=== PATIENT | male | born 1945 | race Caucasian/White ===

== ENCOUNTER 2018-03-11 09:29 | Outpatient (REF) | payer MEDICARE, MEDICAID, SELFPAY ==
[2018-03-11 12:55] LABS: ALT 17 U/L (12-78); AST 19 U/L (15-37); Albumin 3.9 g/dL (3.4-5.0); Alkaline Phosphatase 112 U/L (46-116); BUN 41 mg/dL (7-18); Bilirubin, Total 0.7 mg/dL (0.2-1.0); CREATININE 1.63 mg/dL (0.70-1.30); Calcium 8.7 mg/dL (8.5-10.1); Chloride 105 mmol/L (98-107); Cholesterol 239 mg/dL (50-200); Estimated GFR 41.56 (mL/min/1.73m2); Glucose 102 mg/dL (70-100); HDL Cholesterol 42 mg/dL (40-60); LDL CHOLESTEROL 177 mg/dL (<100); Potassium 4.2 mmol/L (3.5-5.1); Sodium 139 mmol/L (136-145); Total Protein 7.3 g/dL (6.4-8.2); Triglyceride 114 mg/dL (30-150)
== END 2018-03-11 09:30 ==
LOC: NCHCN 09:29
PROVIDERS: Visit Provider Family Medicine
DX: I10 Essential (primary) hypertension (principal); Z13.6 Encounter for screening for cardiovascular disorders
CPT/HCPCS: 80053; 80061; 83721

== ENCOUNTER 2019-08-24 08:55 | Outpatient (REF) | payer MEDICARE, MEDICAID, SELFPAY ==
[2019-08-24 12:52] LABS: ALT 20 U/L (16-63); AST 18 U/L (15-37); Alkaline Phosphatase 102 U/L (46-116); Anion Gap 11.4 mmol/L (3-11); BUN 45 mg/dL (7-18); Bilirubin, Total 0.5 mg/dL (0.2-1.0); CO2 26.6 mmol/L (21.0-32.0); Calcium 8.8 mg/dL (8.5-10.1); Calculated LDL 187 mg/dL (<100); Chloride 104 mmol/L (98-107); Cholesterol 253 mg/dL (<200); Estimated GFR 39.38 (mL/min/1.73m2); Glucose 116 mg/dL (74-106); HDL Cholesterol 43 mg/dL (40-60); Potassium 4.5 mmol/L (3.5-5.1); Sodium 142 mmol/L (136-145); Total Protein 7.1 g/dL (6.4-8.2); Triglyceride 119 mg/dL (<150)
[2019-08-24 13:56] LABS: HCT 40.8 % (40.0-50.0); HGB 13.6 g/dL (13.5-17.5); Mean Corp. HGB Concentration 33.3 g/dL (32.0-36.0); Mean Corpuscular Hemoglobin 31.1 pg (27.0-33.0); Mean Corpuscular Volume 93.2 fL (80-95); Mean Platelet Volume 12.4 fL (8.0-11.0); Platelet Count 154 x1000/uL (130-400); RBC 4.38 m/cumm (4.50-6.00); RBC Distribution Width 13.3 % (11.8-14.1); White Blood Cell Count 10.83 k/cumm (4.4-10.8)
== END 2019-08-24 09:15 ==
LOC: NCHCN 08:55
PROVIDERS: Visit Provider Family Medicine
DX: I48.0 Paroxysmal atrial fibrillation (principal); E78.5 Hyperlipidemia, unspecified; I10 Essential (primary) hypertension; Z00.00 Encounter for general adult medical examination without abnormal findings
CPT/HCPCS: 80053; 80061; 85027

== ENCOUNTER 2020-04-29 15:42 | Outpatient (REF) | payer MEDICARE, MEDICAID, SELFPAY ==
[2020-05-02 02:08] LABS: COVID-19 RT-PCR Result NEGATIVE (Negative)
== END 2020-04-29 16:02 ==
LOC: NCHCN 15:42
PROVIDERS: Visit Provider Family Medicine
DX: Z20.828 Contact with and (suspected) exposure to other viral communicable diseases (principal)
CPT/HCPCS: U0003

== ENCOUNTER 2021-05-15 16:29 | Outpatient (REF) | payer MEDICARE, MEDICAID, SELFPAY ==
[2021-05-15 21:57] LABS: ALT 23 U/L (16-63); AST 25 U/L (15-37); Albumin 3.9 g/dL (3.4-5.0); Alkaline Phosphatase 111 U/L (46-116); BUN 43 mg/dL (7-18); Bilirubin, Total 0.6 mg/dL (0.2-1.0); CREATININE 1.8 mg/dL (0.70-1.30); Calcium 8.8 mg/dL (8.5-10.1); Calculated LDL 151 mg/dL (<100); Chloride 103 mmol/L (98-107); Cholesterol 221 mg/dL (<200); Estimated GFR 36.67 (mL/min/1.73m2); Glucose 85 mg/dL (74-106); HDL Cholesterol 49 mg/dL (40-60); Potassium 4.1 mmol/L (3.5-5.1); Sodium 141 mmol/L (136-145); Total Protein 7.1 g/dL (6.4-8.2); Triglyceride 105 mg/dL (<150)
[2021-05-15 22:08] LABS: Creatine Kinase 168 U/L (39-308)
== END 2021-05-15 16:30 | disposition home or self-care (01) ==
LOC: NCHCN 16:29
PROVIDERS: Visit Provider Family Medicine
DX: E78.5 Hyperlipidemia, unspecified (principal)
CPT/HCPCS: 80053; 80061; 82550

== ENCOUNTER 2022-11-26 15:32 | Outpatient (REF) | payer MEDICARE, MEDICAID, SELFPAY ==
[2022-11-26 20:46] LABS: HCT 38.4 % (40.0-50.0); HGB 12.8 g/dL (13.5-17.5); MCH 30.7 pg (27.0-33.0); MCHC 33.3 % (32.0-36.0); MCV 92 fL (80-95); MPV 12.1 fL (8.0-11.0); Platelet Count 134 10^3/uL (130-400); RBC 4.17 10^6/uL (4.36-5.78); RDW-SD 43.8 fL; WBC 8.95 10^3/uL (4.4-10.8)
[2022-11-26 21:10] LABS: ALT 20 U/L (16-63); AST 24 U/L (15-37); Alkaline Phosphatase 123 U/L (46-116); Anion Gap 12.1 mmol/L (3-11); BUN 48 mg/dL (7-18); Bilirubin, Total 1.1 mg/dL (0.2-1.0); CO2 25.9 mmol/L (21.0-32.0); CREATININE 1.8 mg/dL (0.70-1.30); Calcium 9.3 mg/dL (8.5-10.1); Chloride 103 mmol/L (98-107); Estimated GFR 37.82 (mL/min/1.73m2); Glucose 118 mg/dL (74-106); Potassium 3.9 mmol/L (3.5-5.1); Sodium 141 mmol/L (136-145); Total Protein 7.4 g/dL (6.4-8.2)
[2022-11-30 09:38] LABS: PSA, Screening 126.1 ng/mL (<=6.5)
== END 2022-11-26 15:33 | disposition home or self-care (01) ==
LOC: NCHCN 15:32
PROVIDERS: Visit Provider Family Medicine
DX: I10 Essential (primary) hypertension (principal); Z12.5 Encounter for screening for malignant neoplasm of prostate
CPT/HCPCS: 80053; 84153; 85027

== ENCOUNTER 2022-11-30 10:34 | Emergency (ER) | payer MEDICARE, MEDICAID, SELFPAY ==
[2022-11-30 10:46] VITALS: BP 160/77; PULSE 61; RESP 18; TEMP 36.7; O2SAT 99
--- NOTE | 2022-11-30 10:52 | NUR.NOTE ---
Nursing Note: [facility] called follow up appt December 02 @ 9:00 AM
--- NOTE | 2022-11-30 10:55 | W.ED.GENAD ---
Discharge Plan Disposition Patient Disposition: Home Discharge Details Clinical Impression: Acute urinary retention, Hematuria, Complication, blocked Jordan catheter Primary Care Provider: Freda Dumont ED Provider: Yossi Burgos Meds and New Rx's Prescriptions: Continued chlorthalidone 25 MG tablet 25 mg PO DAILY amlodipine 5 MG tablet 5 mg PO DAILY allopurinol 100 mg tablet 100 mg PO DAILY metoprolol tartrate 25 mg tablet 25 mg PO BID ascorbic acid (vitamin C) 500 mg capsule PO BID rosuvastatin [Crestor] 10 mg tablet 10 mg PO DAILY lisinopril 20 mg tablet 40 mg PO DAILY pravastatin 20 MG tablet 20 mg PO .QHS clindamycin HCl 300 MG capsule 300 mg PO .QID diphenhydramine HCl [Benadryl] 25 MG capsule 25 mg PO PRN ranitidine HCl [Zantac Maximum Strength] 150 MG tablet 150 mg PO BID Qty: 14 0RF prednisone 20 MG tablet 60 mg PO DAILY Qty: 15 0RF Discharge Instructions Instructions: Hematuria (ED), Urinary Retention in Men (ED) Discharge Data Discharge Physician: Yossi Burgos Medical Decision Making Patient had urinary tension last week had a Jordan placed came today for the Jordan was clogged with clots. 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 Here in the emergency department he had the Jordan irrigated with removal of clots now is flowing adequately in the urine has cleared. He will be discharged home with a Jordan and a leg bag advised him if he is out on the farm to clamp the Jordan take the back off and put back on without getting infected. Urinalysis was sent which shows no infection no white blood cells shows hematuria Differential Diagnosis Differential Diagnosis: 1. Urinary retention 2. Hematuria 3. Hemorrhagic cystitis Lab Data Lab results reviewed: Yes I reviewed the patient's lab results. Lab results narrative: No white blood cells just red blood cells Labs: RUN DATE: 11/30/22 [facility] PAGE 1 RUN TIME: [id number] RUN USER: [place] [address] Mamta Greco MD PATIENT REPORT PATIENT: Alfa Cruz LOC: ER U #: [id number] /SX: 1945 M ROOM: RE11/30/[address]: Yossi Burgos M.D. STATUS: REG ER BED: DIS: SPEC #: [id number] MATTY: 11/30/22 STATUS: COMP REQ #: [id number] RECD: 11/30/[address]: Yossi Burgos M.D. ENTERED: 11/30/[address]: FAX #: ORDERED: Urinalysis, UA Micro Test Result Flag Reference Verified Color Yellow Yellow 11/30/22 Clarity Cloudy Clear 11/30/22 Specific [place] 1.025 1.005-1.025 11/30/22 pH 7.5 5-8 11/30/22 Leukocyte Esterase Negative Negative 11/30/22 Nitrite Negative Negative 11/30/22 Protein 30 H Negative mg/dL 11/30/22 Glucose Negative Negative mg/dL 11/30/22 Ketones Negative Negative mg/dL 11/30/22 Urobilinogen 0.2 Up to 0.2 mg/dL 11/30/22 Bilirubin Negative Negative 11/30/22 Blood Large H Negative 11/30/22 WBC 0-2 0-5 HPF 11/30/22 RBC >50 H 0-2 HPF 11/30/22 Epithelial Cells Rare Negative HPF 11/30/22 Bacteria Negative Negative HPF 11/30/22 Crystals Negative Negative HPF 11/30/22 Mucus Trace Negative 11/30/22 Casts 0-2 Hyaline Negative LPF 11/30/22 C & S Indicated? No 11/30/22 HPI General Date/Time Provider Initiated Documentation: 11/30/22 10:55. 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 Related Data Home Medications Medication Instructions Recorded Confirmed amlodipine 5 mg tablet 5 mg PO DAILY 07/19/13 05/27/15 chlorthalidone 25 mg tablet 25 mg PO DAILY 07/19/13 05/27/15 clindamycin HCl 300 mg capsule 300 mg PO .QID 05/27/15 05/27/15 diphenhydramine HCl 25 mg capsule 25 mg PO PRN 05/27/15 05/27/15 (Benadryl) pravastatin 20 mg tablet 20 mg PO .QHS 05/27/15 05/27/15 prednisone 20 mg tablet 60 mg PO DAILY ##15 05/27/15 ranitidine HCl 150 mg tablet 150 mg PO BID ##14 05/27/15 (Zantac Maximum Strength) allopurinol 100 mg tablet 100 mg PO DAILY 11/27/22 ascorbic acid (vitamin C) 500 mg mg PO BID 11/27/22 capsule lisinopril 20 mg tablet 40 mg PO DAILY 11/27/22 metoprolol tartrate 25 mg tablet 25 mg PO BID 11/27/22 rosuvastatin 10 mg tablet (Crestor) 10 mg PO DAILY 11/27/22 Previous Rx's Medication Instructions Recorded prednisone 20 mg tablet 60 mg PO DAILY ##15 05/27/15 ranitidine HCl 150 mg tablet 150 mg PO BID ##14 05/27/15 (Zantac Maximum Strength) Allergies Allergy/AdvReac Type Severity Reaction Status Date / Time amoxicillin trihydrate Allergy Severe Hives Unverified 05/27/15 09:45 [From Augmentin] potassium clavulanate Allergy Severe Hives Unverified 05/27/15 09:45 [From Augmentin] General Stated Complaint: Urinary SARAY: 3 Review of Systems All systems reviewed & are unremarkable except as noted in HPI and below Constitutional Constitutional: Reports as per HPI Eyes Eyes: Reports as per HPI and Reports system reviewed and no additional complaints, except as documented ENT Ears, Nose, Mouth, and Throat: Reports system reviewed and no additional complaints, except as documented Cardiovascular Cardiovascular: Reports as per HPI and Reports system reviewed and no additional complaints, except as documented Respiratory Respiratory: Reports as per HPI and Reports system reviewed and no additional complaints, except as documented Gastrointestinal Gastrointestinal: Reports as per HPI and Reports system reviewed and no additional complaints, except as documented Genitourinary Genitourinary: Reports system reviewed and no additional complaints, except as documented, Reports as per HPI and Reports hematuria Musculoskeletal Musculoskeletal: Reports system reviewed and no additional complaints, except as documented Neurologic Neurologic: Reports system reviewed and no additional complaints, except as documented Psychiatric Psychiatric: Reports system reviewed and no additional complaints, except as documented Hematologic/Lymphatic Hematologic/Lymphatic: Reports system reviewed and no additional complaints, except as documented PFSH All Active Problems (Updated 11/30/22 @ 13:51 by Yossi Burgos MD) Acute urinary retention (Acute) Hematuria (Acute) Complication, blocked Jordan catheter (Acute) Hyperlipidemia (Acute) Prophylactic antibiotic (Acute) Medical History Acute retention of urine Atrial fibrillation Enlarged prostate Gout Hip pain HTN (hypertension) Presence of prosthetic heart valve Surgical History History of hip replacement Social History Smoking/Tobacco Use Status: Former Tobacco Use Smoking risk assessment performed?: Yes Drug use: Never Exam Const General: cooperative, healthy appearing and comfortable [facility] Head: normal to inspection, no palpable skull fracture and normocephalic Ears: hearing grossly normal bilaterally General nose exam: external nose normal Face and sinus: normal facial exam Mouth: oral mucosae normal Eyes General: appearance normal, both eyes and all related structures Eyelids: eyelids normal Conjunctivae: conjunctivae normal Pupils: PERRL EOM: EOM intact bilaterally Direct ophthalmoscopy: normal light reflex Neck Neck: normal visual inspection, full ROM and no lymphadenopathy Chest Chest: normal inspection of the chest and normal palpation of entire chest wall Resp Effort & Inspection: normal respiratory effort Cardio Jugular venous pressure: no JVD Palpation: normal PMI and abnormal PMI GI Palpation: other (Bladder palpable and hernia in the left groin) Percussion: dullness to percussion (Dullness to percussion lower abdomen) Scrotum: inguinal hernia on the left Skin General skin exam: no rashes or lesions noted Neuro General: patient alert, patient awake and patient oriented x3 Extrem General: normal to inspection and full ROM Psych Appearance: grossly normal Mental Status: mental status grossly normal Course Patient presented with a clotted Jordan who had the bladder irrigated and now it is cleared Reevaluation(s) Initial Evaluation: Patient feels much better and the flow of urine is coming adequately Time: 13:44 Reevaluation: Patient feels much better and the urine is flowing and he will be discharged home Vital Signs Vital signs: Vital Signs Temperature 36.7 C 11/30/22 10:46 Pulse 61 11/30/22 10:46 Respiratory Rate 18 11/30/22 10:46 Blood Pressure 160/77 H 11/30/22 10:46 Pulse Oximetry 99 11/30/22 10:46 Temperature 36.7 C 11/30/22 10:46 Temperature Source Temporal Artery Scan 11/30/22 10:46 Pulse 61 11/30/22 10:46 Respiratory Rate 18 11/30/22 10:46 Blood Pressure 160/77 H 11/30/22 10:46 Pulse Oximetry 99 11/30/22 10:46 Oxygen Delivery Method Room Air 11/30/22 10:46 Oxygen Flow Rate 0 11/30/22 10:46 Pain Level 0 11/30/22 10:46
[2022-11-30 12:53] LABS: Bilirubin Negative (Negative); Blood Large (Negative); Clarity Cloudy (Clear); Glucose Negative (Negative); Ketones Negative (Negative); Leukocyte Esterase Negative (Negative); Nitrite Negative (Negative); Specific Gravity 1.025 (1.005-1.025); Urobilinogen 0.2 mg/dL (Up to 0.2); pH 7.5 (5-8)
[2022-11-30 13:10] LABS: Bacteria Negative HPF (Negative); C & S Indicated? No; Casts 0-2 Hyaline LPF (Negative); Crystals Negative HPF (Negative); Epithelial Cells Rare HPF (Negative); Mucus Trace (Negative); RBC >50 HPF (0-2); WBC 0-2 HPF (0-5)
[2022-11-30 14:13] VITALS: BP 152/76; PULSE 76; RESP 18; TEMP 36.7; O2SAT 95
== END 2022-11-30 14:16 | disposition home or self-care (01) ==
PROVIDERS: Emergency Provider Emergency Medicine Emergency Medical Services; PCP Family Medicine
DX: R31.9 Hematuria, unspecified (principal); I10 Essential (primary) hypertension; T83.091A Other mechanical complication of indwelling urethral catheter, initial encounter; R33.8 Other retention of urine
CPT/HCPCS: 99282; 81003; 81015; 99283

== ENCOUNTER 2022-12-01 09:23 | Emergency (ER) | payer MEDICARE, MEDICAID, SELFPAY ==
[2022-12-01 09:30] VITALS: BP 144/81; PULSE 65; RESP 18; TEMP 36.7; O2SAT 94
--- NOTE | 2022-12-01 10:46 | W.ED.GENAD ---
Discharge Plan Disposition Patient Disposition: Home Discharge Details Clinical Impression: Complication, blocked Tate catheter Primary Care Provider: Danika Velez ED Provider: Yossi Burgos Home Meds and New Rx's Prescriptions: Continued chlorthalidone 25 MG tablet 25 mg PO DAILY amlodipine 5 MG tablet 5 mg PO DAILY allopurinol 100 mg tablet 100 mg PO DAILY metoprolol tartrate 25 mg tablet 25 mg PO BID ascorbic acid (vitamin C) 500 mg capsule PO BID rosuvastatin [Crestor] 10 mg tablet 10 mg PO DAILY lisinopril 20 mg tablet 40 mg PO DAILY pravastatin 20 MG tablet 20 mg PO .QHS clindamycin HCl 300 MG capsule 300 mg PO .QID diphenhydramine HCl [Benadryl] 25 MG capsule 25 mg PO PRN ranitidine HCl [Zantac Maximum Strength] 150 MG tablet 150 mg PO BID Qty: 14 0RF prednisone 20 MG tablet 60 mg PO DAILY Qty: 15 0RF Discharge Instructions Instructions: Tate Catheter Placement and Care (ED) Discharge Data Discharge Physician: Yossi Burgos Medical Decision Making Patient presents to the emergency department complaining of feeling that probably might be obstructed but a [id number] ultrasound of the bladder showed a empty bladder with a Tate in the bladder a large prostate and the balloon inside the bladder. I have reassured the patient and he will be discharged home Imaging Data Radiologic Study: Attestation: I personally reviewed and interpreted this imaging study as follows: Imaging: Ultrasound My impression: [id number] ultrasound of the bladder was performed by me and reviewed by me which shows a normal empty bladder with a Tate in place HPI General Date/Time Provider Initiated Documentation: 12/01/22 10:45. HPI Narrative: Patient who returns emergency department who yesterday had a Tate that he has indwelling irrigated for he had clots. Came today just to have the Tate checked because he thought at some point it was not coming out but the urine flow in the bag is clear and there is about 200 cc of urine in the bag. Patient has an appointment with urology tomorrow Related Data Home Medications Medication Instructions Recorded Confirmed amlodipine 5 mg tablet 5 mg PO DAILY 07/19/13 05/27/15 chlorthalidone 25 mg tablet 25 mg PO DAILY 07/19/13 05/27/15 clindamycin HCl 300 mg capsule 300 mg PO .QID 05/27/15 05/27/15 diphenhydramine HCl 25 mg capsule 25 mg PO PRN 05/27/15 05/27/15 (Benadryl) pravastatin 20 mg tablet 20 mg PO .QHS 05/27/15 05/27/15 prednisone 20 mg tablet 60 mg PO DAILY ##15 05/27/15 ranitidine HCl 150 mg tablet 150 mg PO BID ##14 05/27/15 (Zantac Maximum Strength) allopurinol 100 mg tablet 100 mg PO DAILY 11/27/22 ascorbic acid (vitamin C) 500 mg mg PO BID 11/27/22 capsule lisinopril 20 mg tablet 40 mg PO DAILY 11/27/22 metoprolol tartrate 25 mg tablet 25 mg PO BID 11/27/22 rosuvastatin 10 mg tablet (Crestor) 10 mg PO DAILY 11/27/22 Previous Rx's Medication Instructions Recorded prednisone 20 mg tablet 60 mg PO DAILY ##15 05/27/15 ranitidine HCl 150 mg tablet 150 mg PO BID ##14 05/27/15 (Zantac Maximum Strength) Allergies Allergy/AdvReac Type Severity Reaction Status Date / Time amoxicillin trihydrate Allergy Severe Hives Unverified 05/27/15 09:45 [From Augmentin] potassium clavulanate Allergy Severe Hives Unverified 05/27/15 09:45 [From Augmentin] General Stated Complaint: Urinary SARAY: 4 Review of Systems All systems reviewed & are unremarkable except as noted in HPI and below Constitutional Constitutional: Reports as per HPI and Reports system reviewed and no additional complaints, except as documented Eyes Eyes: Reports as per HPI and Reports system reviewed and no additional complaints, except as documented ENT Ears, Nose, Mouth, and Throat: Reports system reviewed and no additional complaints, except as documented and Reports as per HPI Cardiovascular Cardiovascular: Reports as per HPI and Reports system reviewed and no additional complaints, except as documented Respiratory Respiratory: Reports as per HPI and Reports system reviewed and no additional complaints, except as documented Gastrointestinal Gastrointestinal: Reports as per HPI and Reports system reviewed and no additional complaints, except as documented Genitourinary Genitourinary: Reports system reviewed and no additional complaints, except as documented Musculoskeletal Musculoskeletal: Reports system reviewed and no additional complaints, except as documented Neurologic Neurologic: Reports system reviewed and no additional complaints, except as documented and Reports as per HPI Psychiatric Psychiatric: Reports system reviewed and no additional complaints, except as documented Endocrine Endocrine: Reports system reviewed and no additional complaints, except as documented and Reports as per HPI Hematologic/Lymphatic Hematologic/Lymphatic: Reports system reviewed and no additional complaints, except as documented PFSH All Active Problems (Updated 12/01/22 @ 11:40 by Yossi Burgos MD) Acute urinary retention (Acute) Hematuria (Acute) Complication, blocked Tate catheter (Acute) Hyperlipidemia (Acute) Prophylactic antibiotic (Acute) Medical History Acute retention of urine Atrial fibrillation Enlarged prostate Gout Hip pain HTN (hypertension) Presence of prosthetic heart valve Surgical History History of hip replacement Social History Smoking/Tobacco Use Status: Former Tobacco Use Smoking risk assessment performed?: Yes Drug use: Never Do you feel safe at home: Yes Exam Const General: cooperative, healthy appearing and comfortable [facility] Head: normal to inspection, no palpable skull fracture and normocephalic Face and sinus: normal facial exam Eyes General: appearance normal, both eyes and all related structures Visual Guevara: normal visual guevara by confrontation Neck Neck: normal visual inspection, full ROM and no lymphadenopathy Chest Chest: normal inspection of the chest and normal palpation of entire chest wall Resp Effort & Inspection: normal respiratory effort and able to speak in complete sentences Cardio Jugular venous pressure: no JVD Palpation: normal PMI and abnormal PMI Rate: regular rate Rhythm: regular rhythm GI Inspection: normal to inspection General: bladder normal to palpation Penis: normal penis Other: Indwelling Tate with clear urine coming out of the bag without any obstruction visible Course Vital Signs Vital signs: Vital Signs Temperature 36.7 C 12/01/22 09:30 Pulse 65 12/01/22 09:30 Respiratory Rate 18 12/01/22 09:30 Blood Pressure 144/81 H 12/01/22 09:30 Pulse Oximetry 94 12/01/22 09:30 Temperature 36.7 C 12/01/22 09:30 Temperature Source Temporal Artery Scan 12/01/22 09:30 Pulse 65 12/01/22 09:30 Respiratory Rate 18 12/01/22 09:30 Blood Pressure 144/81 H 12/01/22 09:30 Blood Pressure Position Sitting 12/01/22 09:30 Pulse Oximetry 94 12/01/22 09:30 Oxygen Delivery Method Room Air 12/01/22 09:30 Oxygen Flow Rate 0 12/01/22 09:30 POCUS Exam (ED) Limited Bladder Exam DATE OF EXAM: 12/01/22 TIME OF EXAM: 11:00 PROVIDER THAT PERFORMED THE STUDY: Yossi Burgos IS THIS A REPEAT EXAM DURING THIS ENCOUNTER: no REASON FOR EXAM: Determine post void residual, Tate placement and Urinary retention VISUALIZED STRUCTURES: Bladder PERTINENT FINDINGS/IMPRESSION: tate catheter noted in bladder and no apparent abnormalites INCIDENTAL FINDINGS: Very enlarged prostate with bladder empty and Tate balloon in the bladder Exam complete
[2022-12-01 10:56] VITALS: BP 135/80; PULSE 64; RESP 16; TEMP 36.4; O2SAT 94
== END 2022-12-01 11:47 | disposition home or self-care (01) ==
PROVIDERS: Emergency Provider Emergency Medicine Emergency Medical Services; PCP Family Medicine
DX: T83.091D Other mechanical complication of indwelling urethral catheter, subsequent encounter (principal); N40.0 Benign prostatic hyperplasia without lower urinary tract symptoms
CPT/HCPCS: 99284; 99283

== ENCOUNTER → 2022-12-02 08:54 | Outpatient (BNVA) | payer MEDICARE, MEDICAID, SELFPAY | PROVIDERS: PCP Family Medicine; Visit Provider Nurse Practitioner Gerontology | DX: R33.8 Other retention of urine (principal); T83.091A Other mechanical complication of indwelling urethral catheter, initial encounter; Z80.42 Family history of malignant neoplasm of prostate; N40.3 Nodular prostate with lower urinary tract symptoms; N47.2 Paraphimosis | CPT/HCPCS: 51703; 99214 ==

== ENCOUNTER → 2022-12-11 08:59 | Outpatient (BNVA) | payer MEDICARE, MEDICAID, SELFPAY | PROVIDERS: PCP Family Medicine; Visit Provider Urology | DX: C61 Malignant neoplasm of prostate (principal) | CPT/HCPCS: 55700; 76872 ==

== ENCOUNTER 2022-12-11 11:30 | Outpatient (REF) | payer MEDICARE, MEDICAID, SELFPAY ==
--- NOTE | 2022-12-11 09:20 | PROST_PTH ---
PATIENT: Alfa Cruz LOC: [facility] U#:[id number] AGE/SX: 77/M ROOM: RE12/11/[address]: Elbert Toure MD : 1945 BED: DIS: 12/11/2022 SPEC #: [id number] RECD: 12/11/22 11:34 STATUS: [place] REMary #: [id number] MATTY: 12/11/22 09:[address]: Elbert Toure DEPT: Surgical Specimen RECD BY: Bonnie Luna ENTERED: 12/11/22 11:37 SP TYPE: PROST OTHR DR: Danika Velez Tissues: 1 - PROSTATE NEEDLE BIOPSY 2 - PROSTATE NEEDLE BIOPSY 3 - PROSTATE NEEDLE BIOPSY 4 - PROSTATE NEEDLE BIOPSY 5 - PROSTATE NEEDLE BIOPSY 6 - PROSTATE NEEDLE BIOPSY 7 - PROSTATE NEEDLE BIOPSY 8 - PROSTATE NEEDLE BIOPSY 9 - PROSTATE NEEDLE BIOPSY 10 - PROSTATE NEEDLE BIOPSY 11 - PROSTATE NEEDLE BIOPSY 12 - PROSTATE NEEDLE BIOPSY Procedures: GROSS AND MICRO LEVEL 4 IMMUNOPEROXIDASE STAIN Comments: [id number]
== END 2022-12-11 11:31 | disposition home or self-care (01) ==
LOC: LBN 11:30
PROVIDERS: PCP Family Medicine; Visit Provider Urology
DX: C61 Malignant neoplasm of prostate (principal)
CPT/HCPCS: 88305; 88361

== ENCOUNTER → 2022-12-17 15:07 | Outpatient (BNVA) | payer MEDICARE, MEDICAID, SELFPAY | PROVIDERS: PCP Family Medicine; Referring Provider Family Medicine; Visit Provider Urology | DX: C61 Malignant neoplasm of prostate (principal) | CPT/HCPCS: 96402; 99214; J9155 ==

== ENCOUNTER 2023-01-08 00:02 | Outpatient (CLI) | payer MEDICARE, MEDICAID, SELFPAY ==
--- NOTE | 2023-01-08 07:00 | DI.NM_ITS ---
Exam(s) NM BONE SCAN WHOLE BODY GRP EXAM: [place] BONE SCAN WHOLE BODY GRP CLINICAL HISTORY: PROSTATE CA, c61,? METS. TECHNIQUE: Injected Dose: 25 mCi Tc-99m MDP Delayed Images: 2-3 hours. COMPARISON: CT CT ABDOMEN PELVIS W from 01/08/2023 FINDINGS: Photopenic area in the proximal right femur related to hip prosthesis. Large amount of increased act ivity at the left hip joint consistent with the severe degenerative changes noted on CT. Focus of increased activity in the end of an anterior right rib, likely posttraumatic. Increased act ivity in both ankles as well as right shoulder and left wrist, likely degenerative. There is a small amount of bladder activity. Bilateral renal excretion is identified. No focal area of intense suspi cious uptake is seen. IMPRESSION: 1. No evidence of metastatic disease. 2. Areas of increased activity in several joints consistent with degenerative changes. DATA REPOSITORY:
[2023-01-08 10:01] LABS: CREATININE 1.6 mg/dL (0.70-1.30); Estimated GFR 43.56 (mL/min/1.73m2)
[2023-01-08] MEDS: Barium Sulfate 2% W/V-Berry Smoothie 450 ML BTL 900 ML PO (10:07)
[2023-01-08] MEDS: Normal Saline Flush 10 ML SYR IJ (11:24)
[2023-01-08] MEDS: Normal Saline - Diluent 50 ML VIAL IJ (11:25)
[2023-01-08] MEDS: Omnipaque 350 MG/ML 100 ML BTL IJ (11:26)
--- NOTE | 2023-01-08 11:36 | DI.CT_ITS ---
Exam(s) CT ABDOMEN PELVIS W EXAM: CT ABDOMEN PELVIS W CLINICAL HISTORY: r/o mets, PROSTATE CA, C61. TECHNIQUE: Imaging Protocol: Axial computed tomography images with coronal and sagittal reformatted images were created and reviewed CONTRAST MATERIAL: Intravenous: Omnipaque 350 Contrast volume:100 ml Oral: yes / COMPARISON: No exams were available for comparison FINDINGS: Exam is mildly limited by motion. ABDOMEN: Lung Bases: Normal where visualized. The heart is enlarged. Moderate size hiatal hernia. Liver: Normal density. No measurable mass. Gallbladder and biliary tract: Gallbladder contracted. No radiodense calculus or dilation. Pancreas: Normal density, no abnormal calcifications or inflammatory process. Spleen: Normal. Kidneys: Normal size, contour and axis. No radiodense stones or obstructive uropathy. No suspicious m asses seen. Adrenal glands: No masses seen. Abdominal Aorta: Abdominal portion non-dilated. Atherosclerotic changes. Soft tissues: Large left inguinal hernia extending into left hemiscrotum containing a large portion o f the sigmoid colon. There is some narrowing at the passes through the inguinal ring but no evidence incarceration. There is a large quantity of stool. PELVIS: Bladder: Partially obscured by artifact from right hip prosthesis. Jordan catheter mostly decompresse s the bladder. Diffuse wall thickening. No calculi.No focal mass. Bowel: No obstruction. No bowel wall thickening. Appendix normal. Peritoneal cavity: No ascites, collection or mesenteric inflammatory response. Bones: Right hip prosthesis. 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 Reproductive organs: Markedly enlarged prostate. Lymph nodes: Unremarkable. Impression: No evidence of metastatic disease in the abdomen or pelvis. Markedly enlarged prostate. Thick-walled bladder. Large left inguinal hernia containing a large portion of the sigmoid colon which is nonobstructed. RADIATION DOSE DELIVERED: 1,759.6mGy.cm Total DLP DATA REPOSITORY: All CT scans at this facility are submitted to the National Radiology Data Registry (NRDR) Dose Index Registry (DIR) with the [employer] (ACR). RADIATION OPTIMIZATION: All CT scans at this facility use at least one of these dose optimization te chniques: automated exposure control; mA and/or kV adjustment per patient size (includes targeted exa ms where dose is matched to clinical indication); or iterative reconstruction.
== END 2023-01-08 00:22 ==
LOC: DI 00:02
PROVIDERS: PCP Family Medicine; Visit Provider Urology
DX: C61 Malignant neoplasm of prostate (principal); K40.90 Unilateral inguinal hernia, without obstruction or gangrene, not specified as recurrent
CPT/HCPCS: 78306; 74177; 82565; J3490

== ENCOUNTER → 2023-01-11 14:10 | Outpatient (BNVA) | payer MEDICARE, MEDICAID, SELFPAY | PROVIDERS: PCP Family Medicine; Referring Provider Family Medicine; Visit Provider Urology | DX: C61 Malignant neoplasm of prostate (principal); Z96.0 Presence of urogenital implants | CPT/HCPCS: 99214 ==

== ENCOUNTER → 2023-01-18 08:02 | Outpatient (BNVA) | payer MEDICARE, MEDICAID, SELFPAY | PROVIDERS: PCP Family Medicine; Referring Provider Family Medicine; Visit Provider Nurse Practitioner Gerontology | DX: C61 Malignant neoplasm of prostate (principal); Z46.6 Encounter for fitting and adjustment of urinary device; R33.9 Retention of urine, unspecified | CPT/HCPCS: 96402; J9217 ==